=== PATIENT | male | born 1940 | race Caucasian/White ===

== ENCOUNTER → 2017-11-22 | Outpatient (CLI) | payer MEDICARE ==
[~2017-11-22] MED LIST: ALPR-429 PO; ASPI-663 PO; ATOR-1 PO; DOCU-416 PO; ESOM40CA42 PO; FINA5TAB67 PO; GLUC-198 PO; GLUC100026 PO; IBUP1TAB90 PO; IBUP200C71 PO; IBUP600T22 PO; KET10 PO; LOR5/325 PO; MOMR ENA; OXYB10TA16 PO; OXYB10TA21 PO; OXYC-865 PO; PANT40TA65 PO; PER PO; PHEN200T32 PO; PSYL660P5 PO; SILD100T59 PO; SULF-198 PO; TAMS0.4C25 PO; [UNRECOGNIZED DRUG - CODE] PO
[2017-11-22 16:16] LABS: PLATELET COUNT, AUTOMATED 187 K/uL (150-450)
--- NOTE | 2017-11-22 16:40 | EKG ---
FACILITY: [facility] - [place] PATIENT NAME: MEKA BOOKER : [id number] MR: [id number] V: [id number] EXAM DATE: ORDERING PHYSICIAN: ANTONIA WELCH TECHNOLOGIST: NICOLETTE LOVETT Test Reason : CHEST TIGHTNESS Blood Pressure : / mmHG Vent. Rate : 043 BPM Atrial Rate : 043 BPM P-R Int : 142 ms QRS Dur : 092 ms QT Int : 456 ms P-R-T Axes : 079 045 039 degrees QTc Int : 385 ms Marked sinus bradycardia Abnormal ECG When compared with ECG of 14-MAR-2017 14:59, No significant change was found Referred By: Confirmed By:
== END ==
LOC: LAB 16:00
PROVIDERS: ATTEND Nurse Practitioner Primary Care
DX: R07.9 Chest pain, unspecified (principal)
CPT/HCPCS: 36415; 82040; 82247; 82310; 82374; 82435; 82565; 82947; 84075; 84132; 84155; 84295; 84450; 84460; 84484; 84520; 85025

== ENCOUNTER → 2018-01-30 | Outpatient (CLI) | payer MEDICARE ==
[~2018-01-30] MED LIST changes: +ASPI-1471 PO; +IBUP-136 PO; -IBUP200C71 PO; +IOPAMIDOL 76% 150 ML INFUS BTL 0 ML ONE; +IOPAMIDOL 76% 150 ML INFUS BTL 150 ML ONE; +NS 0.9% 25 ML BAG 50 ML ONE
--- NOTE | 2018-01-30 17:27 | EKG ---
FACILITY: [facility] - [place] PATIENT NAME: MEKA BOOKER : [id number] MR: [id number] V: [id number] EXAM DATE: ORDERING PHYSICIAN: FILEMON DOBBS TECHNOLOGIST: DARELL Test Reason : PRE OP Blood Pressure : / mmHG Vent. Rate : 050 BPM Atrial Rate : 050 BPM P-R Int : 154 ms QRS Dur : 088 ms QT Int : 460 ms P-R-T Axes : 079 059 059 degrees QTc Int : 419 ms Sinus bradycardia with marked sinus arrhythmia Otherwise normal ECG When compared with ECG of 22-NOV-2017 15:21, No significant change was found Confirmed by REKHA BENITEZ ([id number]) on 01/30/2018 8:28:33 PM Referred By: Yasmin AVITIA Confirmed By:REKHA BENITEZ
--- NOTE | 2018-01-30 18:10 | RADIOLOGY IMAGING REPORT ---
[place] [facility] [place] NAME: Marv Freeman : 1940 MR: [id number] V: [id number] EXAM DATE: ORDERING PHYSICIAN: FILEMON DOBBS TECHNOLOGIST: [place] [facility] [place] Patient: Marv Freeman : 1940 Visit/Account:[id number] Date of Sevice: 01/30/2018 ABDOMEN/PELVIS W/WO CONTRAST HISTORY: Kidney stones TECHNIQUE: Axial images acquired through the abdomen/pelvis both with and without IV contrast.. Niraj nal and sagittal reformatting also performed. Dose Lowering Technique One of the following dose optimization techniques was utilized in the performance of this exam: Autom ated exposure control; adjustment of the mA and/or kV according to the patient's size; or use of an i terative reconstruction technique. Specific details can be referenced in the facility's radiology C T exam operational policy. CONTRAST: 125 mL Isovue-370 COMPARISON: March 01, 2017 FINDINGS: Visualized lung bases: There is a spiculated mass lateral aspect the right lower lobe measuring 1.1 x 1 cm abutting the lateral pleural margin. This was not appreciated on the prior study There is linear scarring in the lower lung barros that appears similar Hepatobiliary: Negative. Spleen: Small accessory splenules Adrenals: Negative. Pancreas: Negative. 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 There are multiple tiny nonobstructing calculi seen in both renal collecting sys tems measuring up to 2 mm. Small bilateral renal cysts appear unchanged. Genitalia: Prostate gland appears heterogeneous is enlarged and impinges upon the floor the urinary bladder GI: Negative. Vessels/spaces/nodes: Atherosclerotic calcifications in the abdominal aorta and branch vessels Bones/soft tissues: Degenerative changes in the hip joints and lumbar spine Additional findings: None pertinent. 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 This was not present on the prior study. Although this could represent an area of f ocal atelectasis malignancy should be excluded Prostate gland is heterogeneous and enlarged impinging upon the floor the bladder Report Dictated By: Alissa Larson MD at 01/30/2018 5:45 PM Report E-Signed By: Alissa Larson MD at 01/30/2018 6:06 PM STARN:ALBERT
== END ==
LOC: CT 15:25
PROVIDERS: ATTEND Urology
DX: Z01.818 Encounter for other preprocedural examination (principal); N20.0 Calculus of kidney; N40.3 Nodular prostate with lower urinary tract symptoms; R00.1 Bradycardia, unspecified
CPT/HCPCS: 93005; Q9967; 74178

== ENCOUNTER 2018-02-01 01:59 | Day surgery (SDC) | payer MEDICARE ==
[2018-01-30 15:56] LABS: PLATELET COUNT, AUTOMATED 244 K/uL (150-450)
--- NOTE | 2018-01-31 19:49 | HISTORY AND PHYSICAL ---
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 HISTORY OF PRESENT ILLNESS Patient is a 77-year-old white male who in late 2012 had a history of gross intermittent hematuria and was found to have hematuria emanating from the right ureteral orifice. At that time, a CT scan revealed some punctate stones bilaterally. He ultimately underwent ureteroscopy which showed a small papillary-type lesion in the distal ureter which was biopsied and returned a low -grade urothelial carcinoma/papilloma. He had a followup ureteroscopy in May 2014; however, he was lost to followup until May 2017. At that time, a CT scan as performed with IV contrast which showed a few intrarenal calcifications, but no evidence of a collecting system abnormality. He was taken to the operating room last on June 05, 2017, at which time he underwent cystoscopy and cytology, both of which were normal. He also had normal bilateral retrograde pyelograms. When recently seen in the Urology Clinic, the patient was without complaint. His urinalysis was still normal. Again, recurrence of urothelial carcinoma was discussed with the patient and need for regular followup. He is now being brought to the operating room for planned anesthetic cystoscopy, bilateral retrograde pyelograms, and possible ureteroscopy. He did have a CT IVP performed which showed some small punctate calcifications. Delayed imaging of his upper tracts was normal; however, only his caliceal and renal pelvis with the very proximal ureter were opacified, and there was no opacification of the mid and distal ureters on either side. He was noted to also have a spiculated mass on the lateral aspect of the right lower lobe of the lung which measured 1.1 cm abutting the pleural margin which was not present on the prior study. It is unclear whether this was atelectasis or a more serious issue such as malignancy with followup being suggested. He was also noted to have continued extrarenal pelvises, left greater than right. PAST MEDICAL HISTORY * Kidney stones. * Melanoma. * BPH. * Hypercholesterolemia. * Gastroesophageal reflux disease. * ED. PAST SURGICAL HISTORY * Rotator cuff repair. * Bilateral inguinal herniae. * Melanoma resection. * Tonsillectomy. * Cystoscopy with right stent placement July 2013. * Cystoscopy with ureteroscopy and biopsy of right distal ureter August 2013. * Cystoscopy with semi-rigid ureteroscopy and biopsy September 09, 2013. * Cystoscopy with bilateral retrograde pyelograms with semi-rigid and flexible ureteroscopy May 2014. * Cystoscopy, cytology, bilateral retrograde pyelograms May 2017 along with EGD. * Colonoscopy. CURRENT MEDICATIONS * Lipitor. * Protonix. * Viagra. * Aspirin. ALLERGIES PENICILLIN. 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 He spends half time in [place] and the other in [place]. He is due to depart to [place] next week for eight months. REVIEW OF SYSTEMS Patient denies flank pain, gross hematuria, bleeding disorder, shortness of breath, productive cough, chest pain, change in weight, or chronic headaches. PHYSICAL EXAMINATION GENERAL: Patient is a well-developed, well-nourished, white male in no acute distress. HEENT: Normocephalic, atraumatic. CHEST: Clear to auscultation bilaterally. CARDIOVASCULAR: Regular rate and rhythm. ABDOMEN: Soft, nontender. No masses are palpated. GENITOURINARY: Deferred to the OR. EXTREMITIES: Without clubbing, cyanosis, or edema. NEUROLOGIC: Nonfocal. IMPRESSION A 77-year-old white man with history of low-grade right upper tract transitional cell carcinoma. PLAN Plan to perform anesthetic cystoscopy, bilateral retrograde, and possible right ureteroscopy. He has also been noted to have a spiculated mass on the right lower lobe pleuritic margin which will need follow up by his primary care team in the future. MTDD
[~2018-02-01] VITALS: Ht 180.3 cm; Wt 67.6 kg
[~2018-02-01 01:59] MED LIST changes: -IOPAMIDOL 76% 150 ML INFUS BTL 0 ML ONE; -IOPAMIDOL 76% 150 ML INFUS BTL 150 ML ONE; -NS 0.9% 25 ML BAG 50 ML ONE
[2018-02-01] MEDS ORDERED: IOPAMIDOL-200 50 ML VIAL IS ONE (08:07)
[2018-02-01 08:37] VITALS: BP 121/81
[2018-02-01] MEDS ORDERED: DEXAMETHASONE SOD PHOS 10MG/ML ONE (08:50)
[2018-02-01] MEDS ORDERED: PROPOFOL EMUL(*) 10MG/ML 20 ML 20 ML ONE (08:50)
[2018-02-01] MEDS ORDERED: ONDANSETRON 4 MG/2 ML VIAL ONE (08:50)
[2018-02-01] MEDS ORDERED: LIDOCAINE MPF 1% 5 ML VIAL ONE (08:50)
[2018-02-01] MEDS ORDERED: fentaNYL CITR 100 MCG/2 ML AMP ONE (08:50)
[2018-02-01] MEDS ORDERED: NORMOSOL R SOLN(*) 1000 ML BAG 1,000 ML IV PRN (09:10)
[2018-02-01] MEDS ORDERED: FAMOTIDINE 20 MG TAB PO ONE (09:10)
[2018-02-01] MEDS ORDERED: LEVOFLOXACIN/D5W*500 MG/100 ML 100 ML IVPB ONE (09:10)
[2018-02-01] MEDS ORDERED: LIDOCAINE/SOD BICARB 8.4% SYR ID ONE (09:10)
[2018-02-01] MEDS ORDERED: MIDAZOLAM 2 MG/2 ML VIAL IVP PRN (09:10)
[2018-02-01] MEDS ORDERED: BELLADONNA ALK/OPIUM 60MG SUPP PR ONE (10:39)
[2018-02-01 11:28] VITALS: BP 108/60
[2018-02-01 11:30] VITALS: BP 117/69
[2018-02-01] MEDS ORDERED: DOCU-416 PO (11:45)
[2018-02-01] MEDS ORDERED: OXYB10TA21 PO (11:45)
[2018-02-01] MEDS ORDERED: PHEN200T32 PO (11:48)
[2018-02-01] MEDS ORDERED: LOR5/325 PO (11:48)
[2018-02-01] MEDS ORDERED: TAMS0.4C25 PO (11:49)
[2018-02-01] MEDS ORDERED: IBUP600T22 PO (11:49)
--- NOTE | 2018-02-01 12:09 | PIERCE CYSTOSCOPY ---
EVENT DATE: February 01, 2018 SURGEON: Rufino Louis MD ANESTHESIOLOGIST: Rob Charles M.D. 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 POSTOPERATIVE DIAGNOSES History of low grade transitional cell carcinoma, right distal ureter. PROCEDURES PERFORMED 1. Cystoscopy. 2. Bladder cytology. 3. Bilateral retrograde pyelograms. 4. Right distal semirigid ureteroscopy. 5. Attempted flexible right ureteroscopy. 6. Right internal JJ ureteral stent placement. ESTIMATED BLOOD LOSS Minimal. IV FLUIDS Crystalloids. DRAINS 6-Gabonese x 26 cm Contour stent on right stream taped to penile shaft. PATHOLOGY Bladder cytology for permanent analysis of Reflex FISH. COMPLICATIONS None. CONDITION The patient was taken to recovery room awake and in stable condition. FINDINGS Normal cystoscopic exam, bilateral retrograde pyelograms and distal right ureteroscopy. STATEMENT OF MEDICAL NECESSITY The patient is a 77-year-old white male who originally had history of gross hematuria, which was found to be lateralizing from the right ureteral orifice. This was in 2013. At that time, he underwent ureteroscopy and was found to have a small papillary lesion, which returned low grade transitional cell carcinoma or papilloma. Followup ureteroscopy several months later was normal. His last evaluation was nine months ago with anesthetic cystoscopy and bilateral retrograde pyelograms. He had a CT/IVP performed, which showed normal upper tracts except for some small punctate calcifications. He had no filling defects in the caliceal, renal pelvis or proximal ureter. However, the mid and distal ureters were not opacified. He is now being brought to the operating room for planned anesthetic cystoscopy, bilateral retrograde pyelograms and ureteroscopy as indicated. DESCRIPTION OF OPERATION PERFORMED The patient was brought to the operating room and after general anesthetic was obtained, he was placed in the dorsal lithotomy position and prepped and draped in the usual sterile manner. Anesthetic cystoscopy was performed with the 21- Gabonese rigid Nicole sheath and both the 30-degree and 70-degree lenses. He had a normal appearing pendulous bulbar and membranous urethra. Bladder neck was slightly elevated. He had no medial lobe extension. His bladder was 1+ trabeculated with smooth mucosa with no evidence of tumor or other lesions. Both ureter orifices were slit-like in appearance and effluxing clear urine. At this point, barbotage cytology was obtained and sent for permanent analysis with Reflex FISH. Bilateral retrograde pyelograms were performed using a 6- Gabonese opening access catheter and 7 mL of contrast material on both sides. Both filling and drain films were obtained. Primary intraoperative interpretation, this x-ray was normal. He had no filling defects along the course of the ureter or in the collecting system. On the left side he had an extrarenal pelvis but his caliceal systems were sharp. This appeared unchanged from his prior studies. At this point, the Nicole semirigid ureteroscope was introduced under direct vision into the bladder. The right ureter orifice was visualized. A guidewire was advanced approximately 1 cm beyond the tip of the scope. Under direct vision, distal ureteroscopy was performed. I was able to advance the scope just to the level of the vessels. The entire distal ureter appears completely normal without any evidence of tumors, obstructions, lesions or erythema. At this point, the wire was left in place and the scope was removed. The Nicole flexible scope was then passed up over this wire. However, after multiple attempts under fluoroscopic imaging and direct vision, I cannot advance the scope in the ureter orifice. Therefore, the scope was removed and the 18 dilating system was used to dilate the distal ureter and place a first wire alongside the second wire. Again, I advanced the scope over the working wire. However, after only 2 cm in the ureter, after multiple attempts, I could not advance it easily up the ureter. Therefore, it was felt best to place a ureter stent and obtain passive dilatation before continuing. Therefore, the working wire and the scope was removed. The safety wire was backloaded into the cystoscope and then this was used to place a 6-Gabonese x 26 cm Contour stent. The wire was removed. He was noted to have good coiling in the renal pelvis but fluoroscopy and good coiling in the bladder by direct vision. The patient's bladder was drained through the cystoscopic sheath. The string was left in the distal end of the scope, was placed on Tegaderm and attached to the penile shaft. A Bions suppository was given at the conclusion of the case. The patient was awakened in the operating room and taken to the recovery area awake and in stable condition. PLAN We will see the patient in the clinic in one to two days to discuss results and possible return to the operating room for more proximal renal ureteroscopy versus smooth descent and following his urine and cytologies. He is being discharged home on Flomax, Colace, [place], Pyridium, Ditropan XL and Motrin. MTDD
--- NOTE | 2018-02-01 15:29 | RADIOLOGY IMAGING REPORT ---
FACILITY: [facility] - [place] PATIENT NAME: Marv Freeman : 1940 MR: [id number] V: [id number] EXAM DATE: ORDERING PHYSICIAN: FILEMON DOBBS TECHNOLOGIST: Location: [facility] - [place] Patient: Marv Freeman : 1940 Visit/Account:[id number] Date of Sevice: 02/01/2018 EXAMINATION: Intraoperative fluoroscopic images of the right abdomen and pelvis. HISTORY: Hematuria. COMPARISON: CT abdomen/pelvis 01/30/2018. FINDINGS: Fluoroscopic images of the abdomen and pelvis were obtained in the OR during a urologic procedure. Initial images demonstrate a guidewire extending superiorly in a retrograde manner along the course o f the right ureter the renal pelvis. Subsequent images demonstrate placement of a right-sided nephrou reteral stent, with the upper end overlying the renal pelvis and the lower end in the urinary kidney. There is residual contrast material in the renal collecting systems from the recent prior CT. There i s mild dilatation of the opacified left renal collecting system. Fluoroscopy time: 1 minute 23 seconds Images obtained: 8 IMPRESSION: Fluoroscopy was utilized during a urologic procedure, with right nephroureteral stent placement. Plea se see the separate operative report for further description of findings. Report Dictated By: Reyes Akins MD at 02/01/2018 3:20 PM Report E-Signed By: Reyes Akins MD at 02/01/2018 3:24 PM WSN:[id number]
[2018-02-05] MEDS ORDERED: PLAN450T3 PO (09:34)
[2018-02-05] MEDS ORDERED: ROSU10TA5 PO (10:33)
== END 2018-02-01 11:28 | disposition home or self-care (01) ==
LOC: OR 01:59
PROVIDERS: ATTEND Urology
DX: Z85.54 Personal history of malignant neoplasm of ureter (principal); Z87.442 Personal history of urinary calculi; N40.0 Benign prostatic hyperplasia without lower urinary tract symptoms; E78.00 Pure hypercholesterolemia, unspecified
CPT/HCPCS: 36415; 52332; 52351; 74420; 81001; 84153; 85025; 87088; 88108; A9270; J1100; J1956; J2001; J2405; J2704; J3010; Q9966; 82040; 82247; 82310; 82374; 82435; 82565; 82947; 84075; 84132; 84155; 84295; 84450; 84460; 84520

== ENCOUNTER → 2018-02-05 | Outpatient (CLI) | payer MEDICARE ==
[~2018-02-05] MED LIST changes: +PLAN450T3 PO; +ROSU10TA5 PO
== END ==
LOC: LAB 09:39
PROVIDERS: ATTEND Emergency Medicine
DX: E78.5 Hyperlipidemia, unspecified (principal); D53.9 Nutritional anemia, unspecified
CPT/HCPCS: 36415; 82465; 82607; 82746; 83540; 83550; 83718; 83921; 84478

== ENCOUNTER → 2018-12-31 | Outpatient (CLI) | payer MEDICARE | LOC: LAB 14:34 | PROVIDERS: ATTEND Urology | DX: Z12.5 Encounter for screening for malignant neoplasm of prostate (principal); Z85.54 Personal history of malignant neoplasm of ureter; Z85.528 Personal history of other malignant neoplasm of kidney | CPT/HCPCS: 36415; G0103; 84153 ==

== ENCOUNTER → 2019-01-04 | Outpatient (REF) | payer MEDICARE | LOC: ZZSENDIN 12:00 | PROVIDERS: ATTEND Urology | DX: R31.0 Gross hematuria (principal) | CPT/HCPCS: 88108 ==